=== PATIENT | male | born 2000 | race Two or more races ===

== ENCOUNTER 2024-04-17 20:38 | Inpatient (IN) | payer MEDICAID, SELFPAY ==
[2024-04-17] VITALS (19 sets, daily range): BP systolic 123–146; BP diastolic 57–102; PULSE 68–241; RESP 15–33; TEMP 37.1–37.2; O2SAT 94–98; BMI 20.9
--- NOTE | 2024-04-17 20:40 | EKG_ITS ---
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
[2024-04-17] MEDS: ADENOSINE INJ 3 MG/ML VIAL 6 MG IVP (20:50)
[2024-04-17] MEDS: ADENOSINE INJ 3 MG/ML VIAL 12 MG IVP (20:52)
--- NOTE | 2024-04-17 20:54 | XR_ITS ---
Examination: AP chest single view Technique one AP portable upright chest single view Exam date and time: April 27, 2024 2101 hrs. Indications: Chest pain today. Findings: Normal heart size Accentuation bronchovascular markings. No lobar pneumonia. No geovanny pulmonary edema Impression: Bronchitis pattern
--- NOTE | 2024-04-17 21:02 | EDNOTE_ITS ---
ED General RME/HPI General Chief complaint: Arrhythmia/Palpitations Stated complaint: FAST HEART RATE Time Seen by Provider: 04/17/24 20:58 Arrival date/time: 04/17/24 20:38 RME / HPI RME / HPI narrative: Patient is 23 years old male with no significant past medical history presented to the ED complaining of chest pain and palpitations. Symptoms started suddenly few hours ago and he decided to come to the ED. He reports he had similar symptoms before and had to be treated in the ED. No records are available at [facility]. He reports no drug use, no alcohol or tobacco use. He denies any past medical history. 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 He denies shortness of breath, abdominal pain, fever, chills. Related Data Allergies Allergy/AdvReac Type Severity Reaction Status Date / Time No Known Allergies Allergy Verified 04/17/24 23:07 Review of Systems Review of Systems Systems Reviewed: All systems reviewed, normal except as documented ED Exam Narrative Physical exam: Gen: Well-developed and well-nourished. HEENT: NCAT, PERRLA, EOMI, MMM, anicteric conjunctivae. CVS: normal S1 and S2. RRR. No M/R/G. Resp: CTA B/L. No rhonchi, rales, crackles or wheezing. Abd: soft, non-tender, non-distended. BS+ in all 4 quadrants. MSK: Good ROM in BUE & BLE. No edema or rash. Neuro: CN II-XII grossly intact. Strength 5/5 in BUE & BLE. Alert and oriented x3. Psych: appropriate mood and affect. Course Course Course Narrative: 2040 EKG showed SVT with 223 BPM. 2049 Adenosine 6 mg, no response. 2051 Adenosine 12 mg converted to sinus tachycardia on tele monitor. 2055 EKG showed sinus rhythm at 99 BPM. 2100 Troponin I 0.328. 2300 Troponin I 2.567. Cardiology consulted 0000 Decision to admit. Quality Measures none Orders Category Date Time Status Bedside COVID-19 Antigen Test NOW Care 04/17/24 21:00 Active Bedside Influenza A&B Antigen Test NOW Care 04/17/24 21:00 Completed COVID-19 Screening Questionnaire NOW Care 04/18/24 00:18 Active Decision to Admit X1 Care 04/18/24 00:18 Active EKG (ED ONLY) *Do not use* NOW Care 04/17/24 20:40 Completed Saline [Insert IV] NOW Care 04/17/24 21:00 Active Straight [In and Out Catheter] X1 Care 04/17/24 21:00 Active Consult to Cardiology Stat Cons 04/18/24 00:14 Ordered CXRP [XR chest 1V portable] Stat Exams 04/17/24 20:54 Completed EKG (ED Only) Stat Exams 04/17/24 20:40 Draft Alcohol, Blood Medical Stat Lab 04/17/24 21:00 Completed BNP [B-Type Natriuretic Peptide] Stat Lab 04/17/24 21:00 Completed CBC Stat Lab 04/17/24 21:00 Completed CMP [Comprehensive Metabolic Panel] Stat Lab 04/17/24 21:00 Completed D-Dimer Stat Lab 04/17/24 21:00 Completed Drug Screen,Urine Stat Lab 04/17/24 22:19 Completed Free T4 (Free Thyroxine) Stat Lab 04/17/24 21:00 Completed Magnesium Stat Lab 04/17/24 21:00 Completed TSH [Thyroid Stimulating Hormone] Stat Lab 04/17/24 21:00 Completed Troponin I Stat Lab 04/17/24 21:00 Completed Troponin I Stat Lab 04/17/24 23:23 Completed Urinalysis Stat Lab 04/17/24 22:19 Completed Adenosine 6mg Inj [Adenocard Inj] Med 04/17/24 20:48 Discontinued 12 mg IVP X1 ONE Adenosine 6mg Inj [Adenocard Inj] Med 04/17/24 20:43 Discontinued 18 mg .ROUTE .STK-MED ONE Adenosine 6mg Inj [Adenocard Inj] Med 04/17/24 20:48 Discontinued 6 mg IVP X1 ONE Adenosine 6mg Inj [Adenocard Inj] Med 04/17/24 20:56 Discontinued 6 mg IVP X1 ONE Magnesium Sulfate 2 GM Ivpb [Magnesium Sulfate Ivpb] Med 04/17/24 20:55 Discontinued 2 gm in 50 ml IV X1 Metoprolol Tartrate [Lopressor] Med 04/17/24 20:54 Discontinued 50 mg PO X1 ONE Sodium Chloride 0.9% 500 ml [Ns] 500 ml Med 04/17/24 21:56 Discontinued IV 999 mls/hr Vital Signs Vital signs: Vital Signs Temperature 98.9 F 04/17/24 20:43 Pulse Rate 221 H 04/17/24 20:43 Respiratory Rate 18 04/17/24 20:43 Blood Pressure 129/79 04/17/24 20:43 Pulse Oximetry (%) 96 04/17/24 20:43 Oxygen Delivery Method Room Air 04/17/24 20:43 Procedures -ED EKG Interpretation #1: Date of EK04/17/24 Time of EK:41 Rate: 223 Interpretation: Reviewed by me EKG Impression: SVT #2: Date of EK04/17/24 Time of EK:56 Rate: 99 Interpretation: Reviewed by me EKG Impression: Normal sinus rhythm MDM Patient data External records reviewed:: [facility] previous records Clinical information provided by:: patient Social determinants that could affect healthcare access:: none Patient has the following chronic illnesses:: none How is presenting disease/condition affected by chronic disease/condition?: no chronic disease Evaluation data The following diagnostics were reviewed and interpreted by me:: lab results, radiology exam(s) and EKG tracing(s) Lab and/or radiology exams considered but not ordered:: CTA Interpretation Summary: SVT, NSTEMI type I vs II, mild dehydration Medications Medications considered but not ordered:: heparin Medication administrations:: Medication Administration History Discontinued Medications Adenosine (Adenosine Inj 3 Mg/Ml Vial) 6 mg IVP X1 ONE Stop: 04/17/24 20:49 Adenosine (Adenosine Inj 3 Mg/Ml Vial) 12 mg IVP X1 ONE Stop: 04/17/24 20:49 Last Admin: 04/17/24 20:52 Dose: 12 mg Documented By: DELICIA Adenosine (Adenosine Inj 3 Mg/Ml Vial) Confirm Administered Dose 18 mg .ROUTE .STK-MED ONE Stop: 04/17/24 20:44 Last Admin: 04/17/24 21:01 Dose: Not Given Documented By: SE Non-Admin Reason: Duplicate Medication on eMAR Adenosine (Adenosine Inj 3 Mg/Ml Vial) 6 mg IVP X1 ONE Stop: 04/17/24 20:57 Last Admin: 04/17/24 20:50 Dose: 6 mg Documented By: DELICIA Magnesium Sulfate (Magnesium Sulfate Ivpb) 2 gm in 50 mls @ 25 mls/hr IV X1 ONE Stop: 04/17/24 22:54 Last Infusion: 04/17/24 23:03 Dose: Infused Documented By: Admin: 04/17/24 21:11 Dose: 25 mls/hr Documented By: RADHA Sodium Chloride (Ns) 500 mls @ 999 mls/hr IV .Q31M ONE Stop: 04/17/24 22:26 Last Infusion: 04/17/24 23:06 Dose: Infused Documented By: Admin: 04/17/24 22:05 Dose: 999 mls/hr Documented By: RADHA Metoprolol Tartrate (Metoprolol Tartrate 25 Mg Tablet) 50 mg PO X1 ONE Stop: 04/17/24 20:55 Last Admin: 04/17/24 21:12 Dose: 50 mg Documented By: RADHA Adenosine 6 and 12 mg, metoprolol tartrate 50 mg. NS 500cc, magnesium 2 g, aspirin 325 mg, atorvastatin 40 mg. Consultations Consultation(s) initiated? (list below): Yes Consultation #1 (Physician, Specialty, Details): Dr. Vázquez, cardiology, NSTEMI, SVT. Diagnosis Differential Diagnosis ED Complaint MDM: ACS, SVT, CAP, pericarditis Most likely diagnosis given after review of the tests above:: SVT Admission Indicated Admission indicated?: indicated Explain why admission is indicated or not indicated:: Patient presented with reportedly recurrence of SVT. He was converted to sinus rhythm with adenosine. His troponin I was elevated right after SVT, however repeat troponin I in 2 hours was significantly higher. He will need to be admitted for further cardiac work up. Admission Request Was there a request for admission?: Yes Admission Attestation Admission request attestation: Discussed case with Dr. Hutchison from Hospitalist service regarding admission. Discussed patients ED course, exam findings, labs, and radiology results. The Hospitalist agrees to accept the patient for admission. Disposition Plan Disposition Plan: Admit Medical Decision Making MDM Narrative MDM Narrative: Patient presented with SVT and was converted to sinus rhythm with adenosine. He reports he had similar episode before and was treated in emergency room. He does not report any cardiac history. His troponin was elevated right after SVT and his second troponin 2 hours later was 2.567. Patient will need to be admitted for further workup, cardiology was consulted. Differential Diagnosis Differential Diagnosis: ACS, SVT, CAP, pericarditis Lab Data 04/17/24 21:00 04/17/24 21:00 Labs: Lab Results 04/17/24 04/17/24 04/17/24 Range/Units 21:00 22:19 23:23 WBC 14.6 H (3.8-10.6) Thou/mm3 RBC 5.53 (4.50-5.90) Miln/mm3 Hgb 17.1 H (13.5-16.0) g/dL Hct 48.2 (41.0-53.0) % MCV 87 (80-100) fL MCH 30.9 (25.0-35.0) pg MCHC 35.5 (31.0-37.0) g/dl RDW Std Deviation 40.0 (35.1-43.9) fL Plt Count 294 (140-440) Thou/mm3 Neut % (Auto) 81 H (37-80) % Lymph % (Auto) 12 (10-50) % [place] % (Auto) 6 (0-12) % Eos % (Auto) 0 (0-10) % Baso % (Auto) 1 (0-2.5) % Neut # (Auto) 11.9 H (1.8-7.7) Thou/mm3 Lymph # (Auto) 1.7 (1.0-4.8) Thou/mm3 [place] # (Auto) 0.8 (0.0-0.8) Thou/mm3 Eos # (Auto) 0.0 (0.0-0.5) Thou/mm3 Baso # (Auto) 0.1 (0.0-0.2) Thou/mm3 Immature Gran # (Auto) 0.10 H (0.00-0.00) Thou/mm3 Absolute Nucleated RBC 0.00 (0.00-0.00) Thou/mm3 Immature Gran % 1 H (0-0) % Nucleated RBC % 0 (0) /100 WBC D-Dimer < 250 (<600) ng/mL Sodium 141 (136-145) mMol/L Potassium 4.0 (3.4-5.1) mMol/L Chloride 102 (98-107) mMol/L Carbon Dioxide 25.6 (20.0-31.0) mMol/L Anion Gap 13 (7-16) BUN 25 H (9-23) mg/dL Creatinine 1.0 (0.6-1.3) mg/dL Estim Creat Clear Calc 101.4 (>60) mL/min eGFR > 60 (60 - ) See Note BUN/Creatinine Ratio 25 H (12-20) Ratio Glucose 111 H (74-106) mg/dL Calculated Osmolality 286 (275-295) Calcium 10.2 (8.3-10.6) mg/dL Corrected Calcium 10.2 H (8.5-10.1) mg/dL Magnesium 2.2 (1.6-2.6) mg/dL Total Bilirubin 0.6 (0.3-1.2) mg/dL AST 90 H (0-34) U/L ALT 107 H (10-49) U/L Alkaline Phosphatase 102 (46-116) U/L Troponin I 0.328 H* 2.567 H* D (0.0-0.045) ng/mL B-Natriuretic Peptide 28 (0-100) pg/mL Total Protein 8.7 H (5.7-8.2) gm/dL Albumin 5.6 H (3.5-5.0) gm/dL Globulin 3.1 (2.3-3.5) gm/dL Albumin/Globulin Ratio 1.8 (1.2-2.2) TSH 5.43 H (0.55-4.78) uIU/mL Free T4 1.49 (0.89-1.76) ng/dL Ur Collection Type Clean Catch Urine Color Lt-Yellow (Lt Yel-Yel) Urine Clarity Clear (Clear/Hazy) Urine pH 6.0 (5.0-7.0) Ur Specific [place] 1.022 (1.001-1.035) Urine Protein Negative (Neg - Trace) Urine Glucose (UA) Negative (Negative) Urine Ketones 1+ A (Negative) Urine Blood Negative (Negative) Urine Nitrite Negative (Negative) Urine Bilirubin Negative (Negative) Urine Urobilinogen (Auto) Negative (0.0-1.0) mg/dL Ur Leukocyte Esterase Negative (Negative) Urine RBC 1 (0-3) /hpf Urine WBC 0 (0-5) /hpf Ur Squamous Epith Cells < 1 (0-5) /hpf Urine Bacteria None (None) Hyaline Casts < 1 (0-1) /hpf Urine Opiates Screen Negative (Negative) Urine Fentanyl Screen Negative (Negative) Ur Barbiturates Screen Negative (Negative) U Amphetamin/Meth Scrn Negative (Negative) U Benzodiazepines Scrn Negative (Negative) U Cocaine Metab Screen Negative (Negative) U Marijuana (THC) Screen Negative (Negative) Ethyl Alcohol < 3.0 (0-10.0) mg/dL Discharge Plan Plan Patient Disposition: Admit Acute Care w/in Hospital Problem List Clinical Impression: Supraventricular tachycardia, Elevated troponin Patient/Caregiver Discharge Instructions Print Language: Persian Stand Alone Forms: [employer] Award Info., Patient Portal Info Letter
[2024-04-17] MEDS: Magnesium Sulfate 2 GM Ivpb 2 GM/50 ML BAG IV (21:11)
[2024-04-17] MEDS: METOPROLOL TARTRATE 25 MG TABLET 50 MG PO (21:12)
[2024-04-17 21:34] LABS: Basophils # (Auto) 0.1 Thou/mm3 (0.0-0.2); Basophils % (Auto) 1 % (0-2.5); Eosinophils % (Auto) 0 % (0-10); Hematocrit 48.2 % (41.0-53.0); Hemoglobin 17.1 g/dL (13.5-16.0); Immature Granulocytes % (Auto) 1 % (0-0); Lymphocytes # (Auto) 1.7 Thou/mm3 (1.0-4.8); Lymphocytes % (Auto) 12 % (10-50); Mean Corpuscular HGB Conc 35.5 g/dl (31.0-37.0); Mean Corpuscular Hemoglobin 30.9 pg (25.0-35.0); Mean Corpuscular Volume 87 fL (80-100); Monocytes # (Auto) 0.8 Thou/mm3 (0.0-0.8); Monocytes % (Auto) 6 % (0-12); Neutrophils # (Auto) 11.9 Thou/mm3 (1.8-7.7); Neutrophils % (Auto) 81 % (37-80); Nucleated Red Blood Cell % 0 /100 WBC (0); Platelet Count 294 Thou/mm3 (140-440); Red Blood Count 5.53 Miln/mm3 (4.50-5.90); White Blood Count 14.6 Thou/mm3 (3.8-10.6)
[2024-04-17 21:51] LABS: Alanine Aminotransferase 107 U/L (10-49); Albumin, Serum 5.6 gm/dL (3.5-5.0); Albumin/Globulin Ratio 1.8 (1.2-2.2); Alcohol, Blood Medical < 3.0 mg/dL (0-10.0); Alkaline Phosphatase 102 U/L (46-116); Anion Gap 13 (7-16); Aspartate Amino Transferase 90 U/L (0-34); BUN/Creatinine Ratio 25 Ratio (12-20); Bilirubin,Total 0.6 mg/dL (0.3-1.2); Blood Urea Nitrogen 25 mg/dL (9-23); Calcium 10.2 mg/dL (8.3-10.6); Calcium (Corrected) 10.2 mg/dL (8.5-10.1); Carbon Dioxide 25.6 mMol/L (20.0-31.0); Chloride 102 mMol/L (98-107); Estimated Creatinine Clearance 101.4 mL/min (>60); Globulin 3.1 gm/dL (2.3-3.5); Glucose 111 mg/dL (74-106); Magnesium 2.2 mg/dL (1.6-2.6); Osmolality,Calculated 286 (275-295); Sodium 141 mMol/L (136-145); Thyroid Stimulating Hormone 5.43 uIU/mL (0.55-4.78); Total Protein 8.7 gm/dL (5.7-8.2); eGFR > 60 See Note
[2024-04-17 21:53] LABS: Troponin I 0.328 ng/mL (0.0-0.045)
[2024-04-17 21:54] LABS: D-Dimer < 250 ng/mL (<600)
[2024-04-17 21:58] LABS: B-Type Natriuretic Peptide 28 pg/mL (0-100)
[2024-04-17] MEDS: SODIUM CHLORIDE 0.9% 500 ML 500 ML 999 ML IV (22:05)
[2024-04-17 22:23] LABS: Collection Type, Urine Clean Catch; WBC,Urine 0 /hpf (0-5)
[2024-04-17 22:26] LABS: Free T4 (Free Thyroxine) 1.49 ng/dL (0.89-1.76)
[2024-04-17 22:49] LABS: Bilirubin,Urine Negative (Negative); Blood,Urine Negative (Negative); Clarity,Urine Clear (Clear/Hazy); Color,Urine Lt-Yellow (Lt Yel-Yel); Glucose, Urine Negative (Negative); Hyaline Casts,Urine < 1 /hpf (0-1); Ketones,Urine 1+ (Negative); Leukocyte Esterase,Urine Negative (Negative); Nitrite,Urine Negative (Negative); Protein,Urine Negative (Neg - Trace); RBC,Urine 1 /hpf (0-3); Specific Gravity,Urine 1.022 (1.001-1.035); Squamous Epithelial Cell,Urine < 1 /hpf (0-5); Urobilinogen,Urine Negative mg/dL (0.0-1.0)
[2024-04-17 22:52] LABS: Amphetamine/Methamp Scrn,U Negative (Negative); Barbiturate Screen,Urine Negative (Negative); Benzodiazepines Screen,Urine Negative (Negative); Benzoylecgonine Screen, Ur Negative (Negative); Fentanyl Screen,Urine Negative (Negative); Opiate Screen,Urine Negative (Negative); THC Screen,Urine Negative (Negative)
[2024-04-18] VITALS (25 sets, daily range): BP systolic 116–138; BP diastolic 69–90; PULSE 59–85; RESP 13–98; TEMP 36.3–36.8; O2SAT 97–100
[2024-04-18 00:02] LABS: Troponin I 2.567 ng/mL (0.0-0.045)
--- NOTE | 2024-04-18 02:18 | XR_ITS ---
Examination: Abdomen sonogram, complete Date and time of exam: April 18, 2024 0810 hrs. Indications: Elevated liver function tests on laboratory examination today. Technique: Multiple real-time grayscale transabdominal sonographic images of the abdomen have been obtained. Findings: Normal gallbladder Normal common bile duct 0.3 cm Pancreatic head 2.1 cm Aorta not enlarged Liver 17.2 cm fatty infiltration Normal hepatopedal portal venous flow Patent IVC Right kidney 12.5 cm cortex 1.7 cm Left kidney 10.5 cm cortex 1.9 cm Spleen 10.5 cm Impression: Normal gallbladder Mild hepatomegaly fatty liver
--- NOTE | 2024-04-18 02:19 | ESHP_ITS ---
<Statement entered by Ghazala Weeks MD - 04/18/24 05:56> 23-year-old with a remote history of arrhythmia however patient unable to give any details who presented to the ER with palpitation and dizziness. Patient states it started about 2-3 hours prior to presenting to the ER and patient was noted to be in SVT and thus received 2 doses of adenosine 6 and 12 mg respectively. His SVT converted to sinus rhythm after second dose of adenosine and subsequently patient started on metoprolol titrate 50 mg daily. Furthermore, patient also noted to have an elevation in troponin with initial troponin 0.328 then up trended to 2.5 however EKG with no ST or T wave changes. As a result, plan to admit the patient monitor closely. As for elevated troponins will continue to trend and likely related to the SVT however she continues to go up at that point we will call cardiology immediately.I reviewed above note and agree with findings and plans. I have also personally examined the patient with medicine team and went over assessment and plan with medical team including internal affairs commander and resident physician. Documentation for date of: 04/18/24 HPI History of Present Illness Chief complaint: Palpitation and dizziness for few hours before admission History of present illness: HPI: A 23-year-old male patient with past medical history of nonspecified arrhythmia presented to the ED due to palpitation and dizziness that started at 5 PM on 17 April 2024. 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 At that time patient felt a little bit dizzy and mild sweaty however he denied any chest pain. He reported that he had an episode similar to this 1 when he was in [place] and was admitted to a hospital over there. Patient denied having any acute illness at that time denied using any stimulants such as coffee, meth, or any other drugs. He denied drinking alcohol and denied any use for any medications. After he had the first episode in [place] he has not followed up with any ui architect at that time and he was only prescribed a medication for 1 month in which she did not refill. On further questioning patient denied any chest pain, lower extremity swelling, orthopnea, paroxysmal nocturnal dyspnea. Patient denied any flulike symptoms or runny nose. Home medications: None ED course: On presentation patient's heart rate was 221, blood pressure was 129/79, other vitals within normal limits saturating well on room air. Patient was given 2 doses of adenosine 6 and 12 mg respectively. His SVT converted to sinus rhythm after the second dose of adenosine. He was started on metoprolol tartrate 50 mg p.o. by the ED team. His labs was only significant for WBC level of 14.6, hemoglobin 17.1, and his platelets 294, his BMP showed potassium of 4.0, magnesium 2.2, his BUN was 25 and his serum creatinine is 1.0, he was noticed to have elevated AST and ALT 90 and 107 respectively with normal total bilirubin and alk phos. Initially his troponin was 0.328 and repeat of troponin was 2.567. Repeat EKG showed high voltage QRS complex however there was no signs of ischemic changes. PMH: As above PSX: Denied PFX: Cousin with cardiac problems nonspecified Social hx: Alcohol: Denied Tobacco: Denied Illicit drugs: Denied Allergies: No known allergies Review of Systems Review of Systems Systems Reviewed: All systems reviewed, normal except as documented Exam Vital Signs Temp Pulse Resp BP Pulse Ox O2 Del Method 98.8 F 68 18 124/83 97 Room Air 04/17/24 22:24 04/18/24 00:00 04/18/24 00:00 04/18/24 00:00 04/18/24 00:00 04/17/24 22:24 Narrative Exam GEN: AOx3, able to speak full sentences HEENT: NC/AC, oral mucosa moist, neck supple CVS: RRR, S1-S2 present, no murmurs appreciated RESP: CTAB GI: soft,non distended, non tender, NBS MSK: able to move all 4 limbs, no lower extremity edema SKIN: warm 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 Results: Labs 04/18/24 04:50 04/17/24 21:00 Labs: Short CBC 04/17/24 Range/Units 21:00 WBC 14.6 H (3.8-10.6) Thou/mm3 Hgb 17.1 H (13.5-16.0) g/dL Hct 48.2 (41.0-53.0) % Plt Count 294 (140-440) Thou/mm3 BMP 04/17/24 21:00 Sodium 141 Potassium 4.0 Chloride 102 Carbon Dioxide 25.6 BUN 25 H Creatinine 1.0 Glucose 111 H Calcium 10.2 Cardiac Enzymes 04/17/24 04/17/24 Range/Units 21:00 23:23 Troponin I 0.328 H* 2.567 H* D (0.0-0.045) ng/mL Liver Function 04/17/24 Range/Units 21:00 Total Bilirubin 0.6 (0.3-1.2) mg/dL AST 90 H (0-34) U/L ALT 107 H (10-49) U/L Alkaline Phosphatase 102 (46-116) U/L Albumin 5.6 H (3.5-5.0) gm/dL Urine 04/17/24 Range/Units 22:19 Urine Color Lt-Yellow (Lt Yel-Yel) Urine Clarity Clear (Clear/Hazy) Urine pH 6.0 (5.0-7.0) Ur Specific [place] 1.022 (1.001-1.035) Urine Protein Negative (Neg - Trace) Urine Glucose (UA) Negative (Negative) Quality Measures Quality Measures none Medications Home Medications and Allergies Allergies Allergy/AdvReac Type Severity Reaction Status Date / Time No Known Allergies Allergy Verified 04/17/24 23:07 Visit Medications Acetaminophen (Acetaminophen 325 Mg Tablet) 650 mg PO Q6H PRN PRN Reason: Fever >101.5 Stop: 05/18/24 02:07 Aspirin (Aspirin Ec 81 Mg Tabec) 81 mg PO QDAY [facility] Stop: 05/18/24 08:59 Heparin Sodium (Porcine) (Heparin Sod Inj 5000 Unit/Ml Vial) 5,000 unit SC Q8HR [facility] Stop: 05/02/24 05:59 Metoprolol Tartrate (Metoprolol Tartrate 25 Mg Tablet) 50 mg PO BID [facility] Stop: 05/18/24 08:59 Ondansetron HCl (Ondansetron Inj 2 Mg/Ml Inj 2 Ml) 4 mg IV Q6H PRN; Protocol PRN Reason: NAUSEA OR VOMITING Stop: 05/18/24 02:07 Discontinued Medications Adenosine (Adenosine Inj 3 Mg/Ml Vial) 6 mg IVP X1 ONE Stop: 04/17/24 20:49 Adenosine (Adenosine Inj 3 Mg/Ml Vial) 12 mg IVP X1 ONE Stop: 04/17/24 20:49 Last Admin: 04/17/24 20:52 Dose: 12 mg Adenosine (Adenosine Inj 3 Mg/Ml Vial) 6 mg IVP X1 ONE Stop: 04/17/24 20:57 Last Admin: 04/17/24 20:50 Dose: 6 mg Aspirin (Aspirin 325 Mg Tablet) 325 mg PO X1 ONE Stop: 04/18/24 00:24 Atorvastatin Calcium (Atorvastatin Calcium 10 Mg Tablet) 40 mg PO X1 ONE Stop: 04/18/24 00:24 Magnesium Sulfate (Magnesium Sulfate Ivpb) 2 gm in 50 mls @ 25 mls/hr IV X1 ONE Stop: 04/17/24 22:54 Last Infusion: 04/17/24 23:03 Dose: Infused Sodium Chloride (Ns) 500 mls @ 999 mls/hr IV .Q31M ONE Stop: 04/17/24 22:26 Last Infusion: 04/17/24 23:06 Dose: Infused Metoprolol Tartrate (Metoprolol Tartrate 25 Mg Tablet) 50 mg PO X1 ONE Stop: 04/17/24 20:55 Last Admin: 04/17/24 21:12 Dose: 50 mg Assessment & Plan Plan Summary: A 23-year-old male patient with past medical history of nonspecified arrhythmia presented to the ED due to palpitation and dizziness that started at 5 PM on 17 April 2024. 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 Patient was admitted due to elevated troponins Assessment and plan #SVT status post conversion #Elevated troponins On presentation patient's heart rate was 221, blood pressure was 129/79, other vitals within normal limits saturating well on room air. Patient was given 2 doses of adenosine 6 and 12 mg respectively. His SVT converted to sinus rhythm after the second dose of adenosine. He was started on metoprolol tartrate 50 mg p.o. by the ED team. Initially his troponin was 0.328 and repeat of troponin was 2.567. Repeat EKG showed high voltage QRS complex however there was no signs of ischemic changes. Patient was started on aspirin 325 mg p.o. and statins by the ED team Plan ? Admit patient to telemetry observation ? Start the patient on metoprolol tartrate 50 mg p.o. twice daily ? Replete electrolytes as needed ? Avoid stimulants including coffee ? Continue to trend troponins ? Cardiology consultation to Dr. Vázquez was ordered, follow-up with his recommendations ? Start the patient on aspirin 81 mg p.o. daily #Elevated liver enzymes PAtient came with elevated liver enzymes, denied any hx of liver disease, denied alcohol abuse, U tox was negative on abdominal CT scan liver was normal plan: - Acute hep panel was ordered Hospital Maintenance: FEN: Cardiac diet DVT ppx: Heparin subcu GI ppx: Protonix IV lines: PIV Irene: None Code status: Full code Dispo: Telemetry - Patient's plan and care discussed with my attending, Dr. Micky Peck MD Internal Medicine PGY-2
[2024-04-18] MEDS: Aspirin 325 MG TABLET PO (02:21)
[2024-04-18] MEDS: ATORVASTATIN CALCIUM 10 MG TABLET 40 MG PO (02:21)
[2024-04-18 03:04] LABS: Troponin I 4.473 ng/mL (0.0-0.045)
--- NOTE | 2024-04-18 03:18 | EKG_ITS ---
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
[2024-04-18 04:58] LABS: Basophils % (Auto) 1 % (0-2.5); Eosinophils # (Auto) 0.1 Thou/mm3 (0.0-0.5); Eosinophils % (Auto) 1 % (0-10); Hematocrit 41.9 % (41.0-53.0); Hemoglobin 14.7 g/dL (13.5-16.0); Immature Granulocytes % (Auto) 0 % (0-0); Immature Granulocytes Auto 0.02 Thou/mm3 (0.00-0.00); Lymphocytes # (Auto) 1.9 Thou/mm3 (1.0-4.8); Lymphocytes % (Auto) 25 % (10-50); Mean Corpuscular HGB Conc 35.1 g/dl (31.0-37.0); Mean Corpuscular Hemoglobin 30.8 pg (25.0-35.0); Mean Corpuscular Volume 88 fL (80-100); Monocytes # (Auto) 0.6 Thou/mm3 (0.0-0.8); Monocytes % (Auto) 8 % (0-12); Neutrophils # (Auto) 4.9 Thou/mm3 (1.8-7.7); Neutrophils % (Auto) 66 % (37-80); Nucleated Red Blood Cell % 0 /100 WBC (0); Platelet Count 216 Thou/mm3 (140-440); RDW Standard Deviation 41.9 fL (35.1-43.9); Red Blood Count 4.78 Miln/mm3 (4.50-5.90); White Blood Count 7.4 Thou/mm3 (3.8-10.6)
[2024-04-18 05:28] LABS: Alanine Aminotransferase 79 U/L (10-49); Albumin, Serum 4.5 gm/dL (3.5-5.0); Albumin/Globulin Ratio 1.7 (1.2-2.2); Alkaline Phosphatase 78 U/L (46-116); Anion Gap 6 (7-16); Aspartate Amino Transferase 57 U/L (0-34); BUN/Creatinine Ratio 26 Ratio (12-20); Bilirubin,Total 0.9 mg/dL (0.3-1.2); Blood Urea Nitrogen 18 mg/dL (9-23); Carbon Dioxide 25.9 mMol/L (20.0-31.0); Chloride 107 mMol/L (98-107); Creatinine (Component) 0.7 mg/dL (0.6-1.3); Estimated Creatinine Clearance 144.9 mL/min (>60); Globulin 2.6 gm/dL (2.3-3.5); Glucose 94 mg/dL (74-106); Magnesium 2.5 mg/dL (1.6-2.6); Osmolality,Calculated 279 (275-295); Potassium 4.3 mMol/L (3.4-5.1); Sodium 139 mMol/L (136-145); Total Protein 7.1 gm/dL (5.7-8.2); eGFR > 60 See Note
[2024-04-18] MEDS: HEPARIN SOD INJ 5000 UNIT/ML VIAL SC (05:31)
[2024-04-18 05:55] LABS: Iron 84 mcg/dL (65-175); Percent Iron Saturation 21 % (20-55); Total Iron Binding Capacity 383 mcg/dL (250-425); Unsaturated Iron Binding 299 (225-295)
[2024-04-18 08:55] LABS: Troponin I 3.433 ng/mL (0.0-0.045)
--- NOTE | 2024-04-18 09:02 | PC.NURSE ---
ATTEMPTED TO CALL REPORT, NURSE WILL CALL BACK.
[2024-04-18] MEDS: ASPIRIN EC 81 MG TABEC PO (09:15)
[2024-04-18] MEDS: METOPROLOL TARTRATE 25 MG TABLET 50 MG PO ×2 (09:15→21:02)
[2024-04-18] MEDS: ENOXAPARIN SOD INJ 100 MG/ML SYRINGE 64 MG SC (10:39)
--- NOTE | 2024-04-18 11:49 | ESCONSULT_ITS ---
HPI Data of Consult Requesting Physician: Ghazala Weeks MD Primary Care Provider: Physician No Primary/Family Consult Narrative History of present illness: This is a 23-year-old male patient with past medical history of arrhythmia pt seen in the ER with dizziness and palpitations In the ER EKG showed SVT with HR 224/min SVT and was treated with adenosin pt had similar episodes before troponin elevated - cc:: cc: Ghazala Weeks MD Meds Home Medications and Allergies Home Medications ?Medication ?Instructions ?Recorded ?Confirmed ?Type Unobtainable 04/18/24 04/18/24 History Allergies Allergy/AdvReac Type Severity Reaction Status Date / Time No Known Allergies Allergy Verified 04/17/24 23:07 Exam Vital Signs Temp Pulse Resp BP Pulse Ox O2 Del Method 98.2 F 62 20 127/75 99 Room Air 04/18/24 10:05 04/18/24 10:05 04/18/24 10:05 04/18/24 10:05 04/18/24 10:05 04/18/24 07:38 Routine HEENT Exam Head: Present normocephalic and atraumatic Eye: Present EOMI and PERRL ENT: Present mucous membranes moist Routine Neck Exam Neck: Present supple and trachea midline Routine Respiratory Exam Respiratory: Present chest non-tender, lungs clear, normal breath sounds and no resp distress Routine Cardiovascular Exam Cardiovascular: Present RRR Routine Abdominal Exam Abdominal: Present soft and normoactive bowel sounds Routine Extremities Exam Extremities: Present full ROM Routine Skin Exam Skin: Present intact, dry and warm Routine Neurological Exam Neurological: Present alert, oriented X3 and CN II-XII intact Routine Psychiatric Exam Psychiatric: Present normal affect and normal thought process Results Labs 04/18/24 04:50 04/18/24 04:50 Labs: Short CBC 04/17/24 04/18/24 Range/Units 21:00 04:50 WBC 14.6 H 7.4 D (3.8-10.6) Thou/mm3 Hgb 17.1 H 14.7 D (13.5-16.0) g/dL Hct 48.2 41.9 (41.0-53.0) % Plt Count 294 216 D (140-440) Thou/mm3 BMP 04/17/24 04/18/24 21:00 04:50 Sodium 141 139 Potassium 4.0 4.3 Chloride 102 107 Carbon Dioxide 25.6 25.9 BUN 25 H 18 Creatinine 1.0 0.7 Glucose 111 H 94 Calcium 10.2 9.0 Cardiac Enzymes 04/17/24 04/17/24 04/18/24 Range/Units 21:00 23:23 02:26 Troponin I 0.328 H* 2.567 H* D 4.473 H* D (0.0-0.045) ng/mL 04/18/24 Range/Units 08:23 Troponin I 3.433 H* D (0.0-0.045) ng/mL Liver Function 04/17/24 04/18/24 Range/Units 21:00 04:50 Total Bilirubin 0.6 0.9 (0.3-1.2) mg/dL AST 90 H 57 H (0-34) U/L ALT 107 H 79 H (10-49) U/L Alkaline Phosphatase 102 78 D (46-116) U/L Albumin 5.6 H 4.5 D (3.5-5.0) gm/dL Urine 04/17/24 Range/Units 22:19 Urine Color Lt-Yellow (Lt Yel-Yel) Urine Clarity Clear (Clear/Hazy) Urine pH 6.0 (5.0-7.0) Ur Specific [place] 1.022 (1.001-1.035) Urine Protein Negative (Neg - Trace) Urine Glucose (UA) Negative (Negative) Assessment and Plan Assessment and plan (1) Supraventricular tachycardia: Status: Acute (2) Elevated troponin: Status: Acute Additional Assessment & Plan Additional Plan: pts symptoms are related to SVT which responded to adenosine this suggests AVNRT type SVT elevated troponin is due to demand ischemia doubt ACS recommend echo continue betablocker
--- NOTE | 2024-04-18 12:58 | PD.RESPRO ---
Documentation for date of: 04/18/24 Subjective Subjective Interval history: No overnight events. Patient seen and examined at bedside, resting comfortably. At this time patient denies chest pain, shortness of breath, nausea, vomiting, weakness, fatigue, lightheadedness. Echo pending. Patient remains in sinus rhythm. Cardiology following. Exam Vital Signs Temp Pulse Resp BP Pulse Ox O2 Del Method 98.2 F 64 20 130/82 99 Room Air 04/18/24 12:31 04/18/24 12:31 04/18/24 12:04/18/24 12:31 04/18/24 12:04/18/24 12:31 Narrative Exam PE: Gen: Well-developed and well-nourished. HEENT: NCAT, PERRLA, EOMI, MMM, anicteric conjunctivae. CVS: normal S1 and S2. RRR. No M/R/G. Resp: CTA B/L. No rhonchi, rales, crackles or wheezing. Abd: soft, non-tender, non-distended. BS+ in all 4 quadrants. MSK: Good ROM in BUE & BLE. No edema or rash. Neuro: CN II-XII grossly intact. Strength 5/5 in BUE & BLE. Alert and oriented x3. Psych: appropriate mood and affect. Objective Labs 04/18/24 04:50 04/18/24 04:50 Labs: Laboratory Results - last 24 hr 04/17/24 04/17/24 04/17/24 21:00 22:19 23:23 WBC 14.6 H RBC 5.53 Hgb 17.1 H Hct 48.2 MCV 87 MCH 30.9 MCHC 35.5 RDW Std Deviation 40.0 Plt Count 294 Neut % (Auto) 81 H Lymph % (Auto) 12 [place] % (Auto) 6 Eos % (Auto) 0 Baso % (Auto) 1 Neut # (Auto) 11.9 H Lymph # (Auto) 1.7 [place] # (Auto) 0.8 Eos # (Auto) 0.0 Baso # (Auto) 0.1 Immature Gran # (Auto) 0.10 H Absolute Nucleated RBC 0.00 Immature Gran % 1 H Nucleated RBC % 0 D-Dimer < 250 Sodium 141 Potassium 4.0 Chloride 102 Carbon Dioxide 25.6 Anion Gap 13 BUN 25 H Creatinine 1.0 Estim Creat Clear Calc 101.4 eGFR > 60 BUN/Creatinine Ratio 25 H Glucose 111 H Calculated Osmolality 286 Calcium 10.2 Corrected Calcium 10.2 H Magnesium 2.2 Iron TIBC Iron Saturation Unsat Iron Binding Total Bilirubin 0.6 AST 90 H ALT 107 H Alkaline Phosphatase 102 Troponin I 0.328 H* 2.567 H* D B-Natriuretic Peptide 28 Total Protein 8.7 H Albumin 5.6 H Globulin 3.1 Albumin/Globulin Ratio 1.8 TSH 5.43 H Free T4 1.49 Ur Collection Type Clean Catch Urine Color Lt-Yellow Urine Clarity Clear Urine pH 6.0 Ur Specific [place] 1.022 Urine Protein Negative Urine Glucose (UA) Negative Urine Ketones 1+ A Urine Blood Negative Urine Nitrite Negative Urine Bilirubin Negative Urine Urobilinogen (Auto) Negative Ur Leukocyte Esterase Negative Urine RBC 1 Urine WBC 0 Ur Squamous Epith Cells < 1 Urine Bacteria None Hyaline Casts < 1 Urine Opiates Screen Negative Urine Fentanyl Screen Negative Ur Barbiturates Screen Negative U Amphetamin/Meth Scrn Negative U Benzodiazepines Scrn Negative U Cocaine Metab Screen Negative U Marijuana (THC) Screen Negative Ethyl Alcohol < 3.0 04/18/24 04/18/24 04/18/24 02:26 04:50 08:23 WBC 7.4 D RBC 4.78 Hgb 14.7 D Hct 41.9 MCV 88 MCH 30.8 MCHC 35.1 RDW Std Deviation 41.9 Plt Count 216 D Neut % (Auto) 66 Lymph % (Auto) 25 [place] % (Auto) 8 Eos % (Auto) 1 Baso % (Auto) 1 Neut # (Auto) 4.9 Lymph # (Auto) 1.9 [place] # (Auto) 0.6 Eos # (Auto) 0.1 Baso # (Auto) 0.0 Immature Gran # (Auto) 0.02 H Absolute Nucleated RBC 0.00 Immature Gran % 0 Nucleated RBC % 0 D-Dimer Sodium 139 Potassium 4.3 Chloride 107 Carbon Dioxide 25.9 Anion Gap 6 L BUN 18 Creatinine 0.7 Estim Creat Clear Calc 144.9 eGFR > 60 BUN/Creatinine Ratio 26 H Glucose 94 Calculated Osmolality 279 Calcium 9.0 Corrected Calcium 9.0 Magnesium 2.5 Iron 84 TIBC 383 Iron Saturation 21 Unsat Iron Binding 299 H Total Bilirubin 0.9 AST 57 H ALT 79 H Alkaline Phosphatase 78 D Troponin I 4.473 H* D 3.433 H* D B-Natriuretic Peptide Total Protein 7.1 Albumin 4.5 D Globulin 2.6 Albumin/Globulin Ratio 1.7 TSH Free T4 Ur Collection Type Urine Color Urine Clarity Urine pH Ur Specific [place] Urine Protein Urine Glucose (UA) Urine Ketones Urine Blood Urine Nitrite Urine Bilirubin Urine Urobilinogen (Auto) Ur Leukocyte Esterase Urine RBC Urine WBC Ur Squamous Epith Cells Urine Bacteria Hyaline Casts Urine Opiates Screen Urine Fentanyl Screen Ur Barbiturates Screen U Amphetamin/Meth Scrn U Benzodiazepines Scrn U Cocaine Metab Screen U Marijuana (THC) Screen Ethyl Alcohol Quality Measures Quality Measures none Assessment & Plan Assessment Current Active Medications: Generic Name Dose Route Start Last Admin Trade Name Freq PRN Reason Stop Dose Admin Acetaminophen 650 mg 04/18/24 02:08 Acetaminophen 325 Mg Tablet PO 05/18/24 02:07 Q6H PRN Fever >101.5 Aspirin 81 mg 04/18/24 09:00 04/18/24 09:15 Aspirin Ec 81 Mg Tabec PO 05/18/24 08:59 81 mg QDAY GISELA Administration Enoxaparin Sodium 60 mg 04/18/24 21:00 Enoxaparin Sod Inj 60 Mg/0.6 Ml Syringe 1 mg/kg (64 mg) 05/02/24 10:29 SC BID GISELA Metoprolol Tartrate 50 mg 04/18/24 09:00 04/18/24 09:15 Metoprolol Tartrate 25 Mg Tablet PO 05/18/24 08:59 50 mg BID GISELA Administration Ondansetron HCl 4 mg 04/18/24 02:08 Ondansetron Inj 2 Mg/Ml Inj 2 Ml IV 05/18/24 02:07 Q6H PRN NAUSEA OR VOMITING Protocol Plan 23-year-old male patient with past medical history of nonspecified arrhythmia presented to the ED due to palpitation and dizziness that started at 5 PM on 17 April 2024, admitted for SVT with elevated troponins. #SVT status post conversion #NSTEMI type I versus type II On presentation patient's heart rate was 221, blood pressure was 129/79, other vitals within normal limits saturating well on room air. Patient was given 2 doses of adenosine 6 and 12 mg respectively. His SVT converted to sinus rhythm after the second dose of adenosine. He was started on metoprolol tartrate 50 mg p.o. by the ED team. Initially his troponin was 0.328 and repeat of troponin was 2.567. Repeat EKG showed high voltage QRS complex however there was no signs of ischemic changes. Patient was given aspirin 325 mg p.o. and statins by the ED team. Troponins peaked at 4.47. NSTEMI type II (demand ischemia) suspected, less likely NSTEMI type I. -Telemetry -Start the patient on metoprolol tartrate 50 mg p.o. twice daily -Discharge on metoprolol succinate 50 mg p.o. daily -Replete electrolytes as needed -Avoid stimulants including coffee -Continue to trend troponins -Cardiology consultation to Dr. Vázquez was ordered, recommendations appreciated -Aspirin 81 mg p.o. daily -Echo pending -Lovenox 1 rony/KG twice daily #Transaminitis Patient came with elevated liver enzymes, denied any hx of liver disease, denied alcohol abuse, U tox was negative On abdominal CT scan liver was normal -Acute hep panel pending -Monitor labs DVT prophylaxis: Lovenox GI prophylaxis: Not needed Diet: Regular Lines: Peripheral IV Code status: Full code Plan of care discussed with attending Dr. Ross. Tyler Myers MD PGY?1 Attending Provider Attestation/Addendum Addie Duran, DO, attest that I was physically present for the cerda portions of the service and evaluated the patient with the resident and I reviewed and discussed the case with the resident and agree with the resident's findings and plans of care as documented above Patient seen and evaluated thsi AM. Patient states that he was working yesterday and was trying to lift something when he started to experience palpitation, lightheadedness, dyspnea, diaphoresis and squeezing chest pain. Patient states that he had similar episodes in the past when he was treated for SVT in [place]. Patient had been prescribed metoprolol tartrate 25mg PO BID and subsequently switched to metoprolol succinate 25mg PO daily. Patient had been taking his medications daily and forgot to take it for the past three days prior to this SVT episode. Patient currently states he is feeling well and denies any active chest pain. Elevated troponins concerning for NSTEMI. Will start patient on full dose lovenox and f/u with cardiology recommendations. Patient denies any family history of cardiac diseae. Pending echo
[2024-04-18 14:51] LABS: Troponin I 2.066 ng/mL (0.0-0.045)
[2024-04-19] VITALS (12 sets, daily range): BP systolic 96–129; BP diastolic 67–81; PULSE 49–84; RESP 15–99; TEMP 36.1–36.6; O2SAT 99; BMI 25.3
[2024-04-19 03:38] LABS: Basophils % (Auto) 1 % (0-2.5); Eosinophils # (Auto) 0.2 Thou/mm3 (0.0-0.5); Eosinophils % (Auto) 3 % (0-10); Hematocrit 43.4 % (41.0-53.0); Immature Granulocytes % (Auto) 0 % (0-0); Immature Granulocytes Auto 0.02 Thou/mm3 (0.00-0.00); Lymphocytes # (Auto) 2.2 Thou/mm3 (1.0-4.8); Lymphocytes % (Auto) 41 % (10-50); Mean Corpuscular HGB Conc 34.6 g/dl (31.0-37.0); Mean Corpuscular Hemoglobin 30.7 pg (25.0-35.0); Mean Corpuscular Volume 89 fL (80-100); Monocytes # (Auto) 0.6 Thou/mm3 (0.0-0.8); Monocytes % (Auto) 11 % (0-12); Neutrophils # (Auto) 2.4 Thou/mm3 (1.8-7.7); Neutrophils % (Auto) 44 % (37-80); Nucleated Red Blood Cell % 0 /100 WBC (0); Platelet Count 187 Thou/mm3 (140-440); RDW Standard Deviation 42.7 fL (35.1-43.9); Red Blood Count 4.89 Miln/mm3 (4.50-5.90); White Blood Count 5.5 Thou/mm3 (3.8-10.6)
[2024-04-19 03:53] LABS: Partial Thromboplastin Time 28.7 Seconds (22.0-36.0); Prothrombin Time 10.9 Seconds (9.0-12.2)
[2024-04-19 03:56] LABS: Alanine Aminotransferase 84 U/L (10-49); Albumin, Serum 4.4 gm/dL (3.5-5.0); Albumin/Globulin Ratio 1.6 (1.2-2.2); Alkaline Phosphatase 70 U/L (46-116); Anion Gap 5 (7-16); Aspartate Amino Transferase 63 U/L (0-34); BUN/Creatinine Ratio 19 Ratio (12-20); Bilirubin,Total 1.1 mg/dL (0.3-1.2); Blood Urea Nitrogen 13 mg/dL (9-23); Calcium 9.3 mg/dL (8.3-10.6); Calcium (Corrected) 9.3 mg/dL (8.5-10.1); Carbon Dioxide 27.4 mMol/L (20.0-31.0); Chloride 106 mMol/L (98-107); Creatinine (Component) 0.7 mg/dL (0.6-1.3); Estimated Creatinine Clearance 144.9 mL/min (>60); Globulin 2.7 gm/dL (2.3-3.5); Glucose 88 mg/dL (74-106); Magnesium 2.3 mg/dL (1.6-2.6); Osmolality,Calculated 274 (275-295); Phosphorous 4.1 mg/dL (2.4-5.1); Potassium 4.2 mMol/L (3.4-5.1); Sodium 138 mMol/L (136-145); Total Protein 7.1 gm/dL (5.7-8.2); eGFR > 60 See Note
[2024-04-19] MEDS: METOPROLOL TARTRATE 25 MG TABLET 50 MG PO ×2 (08:49→20:57)
[2024-04-19] MEDS: ASPIRIN EC 81 MG TABEC PO (08:49)
--- NOTE | 2024-04-19 12:03 | ESPR_ITS ---
Documentation for date of: 04/19/24 Subjective Subjective Interval history: Overnight, no acute events reported. Patient continues to be on tartrate 50 mg twice daily and aspirin. Will discontinue therapeutic Lovenox at this time. Patient seen and examined at bedside. Patient denies any chest pain or palpitations or shortness of breath. Pending echocardiogram, and further cardiology recommendations. Troponin has down trended yesterday. Exam Vital Signs Temp Pulse Resp BP Pulse Ox O2 Del Method 97.0 F 53 L 16 128/72 99 Room Air 04/19/24 08:00 04/19/24 11:51 04/19/24 08:00 04/19/24 08:49 04/19/24 08:00 04/19/24 08:00 Narrative Exam General Appearance: Pt is a [place]i-speaking young male in NAD sitting in chair. Alert and oriented, cooperative. HEENT: NC/AT, no scleral icterus, no conjunctival pallor, MMM Lungs: CTAB, no wheezes or crackles appreciated CVS: RRR, S1/S2 heard, no murmurs or rubs appreciated ABD: Soft, non-tender, non-distended, BS + in all 4 quadrants EXT: no deformity/edema/lesions/cyanosis/clubbing, radial pulses 2+ BL, DP pulses 2 + BL SKIN: Skin exam normal without any rashes. Neuro: A&O x 3. No gross neurological deficits. Motor and sensory grossly intact in B/L UL and LL. Psych: Appropriate mood and affect Objective Labs 04/20/24 05:06 04/20/24 05:06 Labs: Laboratory Results - last 24 hr 04/18/24 04/19/24 14:10 03:28 WBC 5.5 RBC 4.89 Hgb 15.0 Hct 43.4 MCV 89 MCH 30.7 MCHC 34.6 RDW Std Deviation 42.7 Plt Count 187 Neut % (Auto) 44 Lymph % (Auto) 41 [place] % (Auto) 11 Eos % (Auto) 3 Baso % (Auto) 1 Neut # (Auto) 2.4 Lymph # (Auto) 2.2 [place] # (Auto) 0.6 Eos # (Auto) 0.2 Baso # (Auto) 0.0 Immature Gran # (Auto) 0.02 H Absolute Nucleated RBC 0.00 Immature Gran % 0 Nucleated RBC % 0 PT 10.9 INR 1.0 APTT 28.7 Sodium 138 Potassium 4.2 Chloride 106 Carbon Dioxide 27.4 Anion Gap 5 L BUN 13 Creatinine 0.7 Estim Creat Clear Calc 144.9 eGFR > 60 BUN/Creatinine Ratio 19 Glucose 88 Calculated Osmolality 274 L Calcium 9.3 Corrected Calcium 9.3 Phosphorus 4.1 Magnesium 2.3 Total Bilirubin 1.1 AST 63 H ALT 84 H Alkaline Phosphatase 70 Troponin I 2.066 H* D Total Protein 7.1 Albumin 4.4 Globulin 2.7 Albumin/Globulin Ratio 1.6 Quality Measures Quality Measures none Assessment & Plan Assessment Current Active Medications: Generic Name Dose Route Start Last Admin Trade Name Freq PRN Reason Stop Dose Admin Acetaminophen 650 mg 04/19/24 11:51 Acetaminophen 325 Mg Tablet PO 05/18/24 02:07 Q6H PRN Fever >100.5 Aspirin 81 mg 04/18/24 09:00 04/19/24 08:49 Aspirin Ec 81 Mg Tabec PO 05/18/24 08:59 81 mg QDAY GISELA Administration Metoprolol Tartrate 50 mg 04/18/24 09:00 04/19/24 08:49 Metoprolol Tartrate 25 Mg Tablet PO 05/18/24 08:59 50 mg BID GISELA Administration Ondansetron HCl 4 mg 04/18/24 02:08 Ondansetron Inj 2 Mg/Ml Inj 2 Ml IV 05/18/24 02:07 Q6H PRN NAUSEA OR VOMITING Protocol Plan 23-year-old male patient with past medical history of nonspecified arrhythmia presented to the ED due to palpitation and dizziness that started at 5 PM on 17 April 2024, admitted for SVT with elevated troponins. #SVT status post conversion #NSTEMI type I versus type II On presentation patient's heart rate was 221, blood pressure was 129/79, other vitals within normal limits saturating well on room air. Patient was given 2 doses of adenosine 6 and 12 mg respectively. His SVT converted to sinus rhythm after the second dose of adenosine. He was started on metoprolol tartrate 50 mg p.o. by the ED team. Initially his troponin was 0.328 and repeat of troponin was 2.567. Repeat EKG showed high voltage QRS complex however there was no signs of ischemic changes. Patient was given aspirin 325 mg p.o. and statins by the ED team. Troponins peaked at 4.47. NSTEMI type II (demand ischemia) suspected, less likely NSTEMI type I. Troponins have since downtrended. -Telemetry -Start the patient on metoprolol tartrate 50 mg p.o. twice daily -Discharge on metoprolol succinate 50 mg p.o. daily -Replete electrolytes as needed -Avoid stimulants including coffee -Cardiology consultation to Dr. Vázquez was ordered, recommendations appreciated -Aspirin 81 mg p.o. daily -Echo pending -DC therapeutic Lovenox, and started Lovenox for DVT prophylaxis #Transaminitis Patient came with elevated liver enzymes, denied any hx of liver disease, denied alcohol abuse, U tox was negative On abdominal CT scan liver was normal -Acute hep panel pending -Monitor labs Health maintenance: DVT prophylaxis: Lovenox GI prophylaxis: Not needed Diet: Regular Lines: Peripheral IV Code status: Full code Patient's plan and care discussed with my attending, Dr. Vandana Cordon MD PGY-2 Attending Provider Attestation/Addendum Addie Duran DO, attest that I was physically present for the cerda portions of the service and evaluated the patient with the resident and I reviewed and discussed the case with the resident and agree with the resident's findings and plans of care as documented above Patient seen and evaluated this AM. No further episodes of tachycardia or chest pain. Pending echocardiogram. No acute events overnight otherwise. Anticipate DC within next 24h
[2024-04-19] MEDS: ENOXAPARIN SOD INJ 40 MG/0.4 ML SYRINGE SC (16:47)
[2024-04-19 22:07] LABS: Hepatitis A Antibody IgM Non Reactive (Non React); Hepatitis B Core Antibody IgM Non Reactive (Non React); Hepatitis B Surface Antigen Non Reactive (Non React); Hepatitis C Antibody Non Reactive (Non React)
[2024-04-19 22:21] LABS: Collection Type, Urine Clean Catch; Squamous Epithelial Cell,Urine 0 /hpf (0-5); WBC,Urine 0 /hpf (0-5)
[2024-04-19 22:27] LABS: Bilirubin,Urine Negative (Negative); Blood,Urine Negative (Negative); Clarity,Urine Clear (Clear/Hazy); Color,Urine Colorless (Lt Yel-Yel); Glucose, Urine Negative (Negative); Ketones,Urine Negative (Negative); Leukocyte Esterase,Urine Negative (Negative); Nitrite,Urine Negative (Negative); Protein,Urine Negative (Neg - Trace); RBC,Urine < 1 /hpf (0-3); Specific Gravity,Urine 1.006 (1.001-1.035); Urobilinogen,Urine Negative mg/dL (0.0-1.0)
[2024-04-20] VITALS (8 sets, daily range): BP systolic 102–128; BP diastolic 59–83; PULSE 51–65; RESP 16–97; TEMP 36–36.7; O2SAT 95–98; BMI 25.7
[2024-04-20 06:20] LABS: Basophils % (Auto) 1 % (0-2.5); Eosinophils # (Auto) 0.2 Thou/mm3 (0.0-0.5); Eosinophils % (Auto) 3 % (0-10); Hematocrit 45.1 % (41.0-53.0); Hemoglobin 15.4 g/dL (13.5-16.0); Immature Granulocytes % (Auto) 1 % (0-0); Immature Granulocytes Auto 0.03 Thou/mm3 (0.00-0.00); Lymphocytes # (Auto) 1.9 Thou/mm3 (1.0-4.8); Lymphocytes % (Auto) 35 % (10-50); Mean Corpuscular HGB Conc 34.1 g/dl (31.0-37.0); Mean Corpuscular Hemoglobin 30.7 pg (25.0-35.0); Mean Corpuscular Volume 90 fL (80-100); Monocytes # (Auto) 0.8 Thou/mm3 (0.0-0.8); Monocytes % (Auto) 14 % (0-12); Neutrophils # (Auto) 2.5 Thou/mm3 (1.8-7.7); Neutrophils % (Auto) 46 % (37-80); Nucleated Red Blood Cell % 0 /100 WBC (0); Platelet Count 231 Thou/mm3 (140-440); RDW Standard Deviation 42.5 fL (35.1-43.9); Red Blood Count 5.01 Miln/mm3 (4.50-5.90); White Blood Count 5.4 Thou/mm3 (3.8-10.6)
[2024-04-20 06:29] LABS: Alanine Aminotransferase 85 U/L (10-49); Albumin, Serum 4.5 gm/dL (3.5-5.0); Albumin/Globulin Ratio 1.6 (1.2-2.2); Alkaline Phosphatase 73 U/L (46-116); Anion Gap 8 (7-16); Aspartate Amino Transferase 52 U/L (0-34); BUN/Creatinine Ratio 17 Ratio (12-20); Bilirubin,Total 0.8 mg/dL (0.3-1.2); Blood Urea Nitrogen 12 mg/dL (9-23); Calcium 9.6 mg/dL (8.3-10.6); Calcium (Corrected) 9.6 mg/dL (8.5-10.1); Chloride 106 mMol/L (98-107); Creatinine (Component) 0.7 mg/dL (0.6-1.3); Estimated Creatinine Clearance 156.1 mL/min (>60); Globulin 2.9 gm/dL (2.3-3.5); Glucose 83 mg/dL (74-106); Magnesium 2.2 mg/dL (1.6-2.6); Osmolality,Calculated 279 (275-295); Phosphorous 3.9 mg/dL (2.4-5.1); Potassium 4.2 mMol/L (3.4-5.1); Sodium 141 mMol/L (136-145); Total Protein 7.4 gm/dL (5.7-8.2); eGFR > 60 See Note
[2024-04-20] MEDS: ENOXAPARIN SOD INJ 40 MG/0.4 ML SYRINGE SC (08:29)
[2024-04-20] MEDS: ASPIRIN EC 81 MG TABEC PO (08:30)
[2024-04-20] MEDS: METOPROLOL TARTRATE 25 MG TABLET 50 MG PO (08:30)
--- NOTE | 2024-04-20 09:30 | PD.IMPROG ---
Documentation for date of: 04/20/24 Subjective Subjective Interval history: no further SVT Exam Vital Signs Temp Pulse Resp BP Pulse Ox O2 Del Method 96.8 F 60 19 128/78 98 Room Air 04/20/24 08:00 04/20/24 08:30 04/20/24 08:00 04/20/24 08:30 04/20/24 08:00 04/20/24 08:00 Routine HEENT Exam Head: Present normocephalic and atraumatic Eye: Present EOMI and PERRL ENT: Present mucous membranes moist Routine Neck Exam Neck: Present supple and trachea midline Routine Respiratory Exam Respiratory: Present chest non-tender, lungs clear, normal breath sounds and no resp distress Routine Cardiovascular Exam Cardiovascular: Present RRR Routine Abdominal Exam Abdominal: Present soft and normoactive bowel sounds Routine Extremities Exam Extremities: Present full ROM Routine Skin Exam Skin: Present intact, dry and warm Routine Neurological Exam Neurological: Present alert, oriented X3 and CN II-XII intact Routine Psychiatric Exam Psychiatric: Present normal affect and normal thought process Objective Labs 04/20/24 05:06 04/20/24 05:06 Labs: Laboratory Results - last 24 hr 04/18/24 04/19/24 04/20/24 02:26 21:10 05:06 WBC 5.4 RBC 5.01 Hgb 15.4 Hct 45.1 MCV 90 MCH 30.7 MCHC 34.1 RDW Std Deviation 42.5 Plt Count 231 D Neut % (Auto) 46 Lymph % (Auto) 35 [place] % (Auto) 14 H Eos % (Auto) 3 Baso % (Auto) 1 Neut # (Auto) 2.5 Lymph # (Auto) 1.9 [place] # (Auto) 0.8 Eos # (Auto) 0.2 Baso # (Auto) 0.0 Immature Gran # (Auto) 0.03 H Absolute Nucleated RBC 0.00 Immature Gran % 1 H Nucleated RBC % 0 Sodium 141 Potassium 4.2 Chloride 106 Carbon Dioxide 27.0 Anion Gap 8 BUN 12 Creatinine 0.7 Estim Creat Clear Calc 156.1 eGFR > 60 BUN/Creatinine Ratio 17 Glucose 83 Calculated Osmolality 279 Calcium 9.6 Corrected Calcium 9.6 Phosphorus 3.9 Magnesium 2.2 Total Bilirubin 0.8 AST 52 H ALT 85 H Alkaline Phosphatase 73 Total Protein 7.4 Albumin 4.5 Globulin 2.9 Albumin/Globulin Ratio 1.6 Ur Collection Type Clean Catch Urine Color Colorless A Urine Clarity Clear Urine pH 6.0 Ur Specific [place] 1.006 Urine Protein Negative Urine Glucose (UA) Negative Urine Ketones Negative Urine Blood Negative Urine Nitrite Negative Urine Bilirubin Negative Urine Urobilinogen (Auto) Negative Ur Leukocyte Esterase Negative Urine RBC < 1 Urine WBC 0 Ur Squamous Epith Cells 0 Urine Bacteria None Hepatitis A IgM Ab Non Reactive Hep Bs Antigen Non Reactive Hep B Core IgM Ab Non Reactive Hepatitis C Antibody Non Reactive Assessment & Plan A&P Narrative continue metoprolol recommend echo may be d/jeffry Time Spent With Patient Time: Total time spent is greater than 50% in coordination of care (as documented) at patient's floor/unit and/or counseling patient:
--- NOTE | 2024-04-20 11:07 | PC.SS ---
Reynold Starks is a 23 year-old male admitted to OR for Palpitations. SS conducted bedside contact with the patient to complete initial assessment and to discuss discharge planning.? Patient confirmed demographic information. Patient identifies his brother Shakeel Maurice [phone] as his surrogate decision maker. Patient resides at home with his family. Pt states he is able to complete all ADL?s independently, no need for any source of DME. No PCP. Pharmacy of choice is [facility]. DC option discussed and pt wishes to return home. Pts family will provide transportation upon DC. No further intervention required at this time, manager social services would be available to address any further concerns. DC Plan: Home Contact: BrotherShakeel
--- NOTE | 2024-04-20 11:26 | PC.SS ---
Rounding: pending ECHo poss DC late today if ECHO is read
--- NOTE | 2024-04-20 11:59 | ECHO_ITS ---
Transthoracic Echo Report Ht (in): 68 Wt (lb): 171 Exam Location: Echo Lab Status: Inpatient Clinical Academic Allergist: IVANNA Hodge^^^^ Indications: Procedure Performed: BP: 120 / 72 HR: 55 Technical Quality: Good MEASUREMENTS (Male / Female) Normal Values 2D ECHO LV Diastolic Diameter PLAX 5.3 cm 4.2 - 5.9 / 3.9 - 5.3 cm LV Systolic Diameter PLAX 3.6 cm IVS Diastolic Thickness 0.7 cm 0.6 - 1.0 / 0.6 - 0.9 cm LVPW Diastolic Thickness 0.8 cm 0.6 - 1.0 / 0.6 - 0.9 cm LV Relative Wall Thickness 0.3 LVOT Diameter 1.9 cm Aortic Root Diameter 2.9 cm LA Systolic Diameter LX 3.2 cm 3.0 - 4.0 / 2.7 - 3.8 cm LV Ejection Fraction MOD BP 60.6 % >= 55 % LV Cardiac Index MOD BP 3467.6 cm?/min?m? LV Ejection Fraction MOD 4C 68.3 % LV Cardiac Index MOD 4C 4201.3 cm?/min?m? LV Ejection Fraction 4C AL 69.3 % LV Cardiac Index 4C AL 4446.9 cm?/min?m? LV Ejection Fraction MOD 2C 52.5 % LV Cardiac Index MOD 2C 2544.0 cm?/min?m? LV Ejection Fraction 2C AL 54.5 % LV Cardiac Index 2C AL 2662.4 cm?/min?m? LA Volume Index 27.9 cm?/m? 16 - 28 cm?/m? Ascending Aorta Diameter 2.2 cm DOPPLER AV Peak Velocity 130.5 cm/s AV Peak Gradient 6.8 mmHg AV Mean Gradient 4.0 mmHg AV Velocity Time Integral 31.8 cm LVOT Peak Velocity 115.0 cm/s LVOT Peak Gradient 5.3 mmHg LVOT Velocity Time Integral 29.1 cm LVOT Cardiac Index 2337.4 cm?/min?m? AV Area Cont Eq vti 2.6 cm? AV Area Cont Eq pk 2.5 cm? MV Area PHT 3.1 cm? Mitral E Point Velocity 93.5 cm/s Mitral A Point Velocity 49.7 cm/s Mitral E to A Ratio 1.9 LV E' Lateral Velocity 16.2 cm/s Mitral E to LV E' Lateral Ratio 5.8 LV E' Septal Velocity 10.2 cm/s Mitral E to LV E' Septal Ratio 9.2 TR Peak Velocity 180.5 cm/s TR Peak Gradient 13.0 mmHg PV Peak Velocity 116.0 cm/s PV Peak Gradient 5.4 mmHg RVOT Peak Velocity 65.8 cm/s FINDINGS Left Ventricle Normal left ventricular size, wall thickness, systolic function with no obvious regional wall motion abnormalities. Normal left ventricular diastolic filling pattern for age. The ejection fraction is visually estimated at 60-65 %. Right Ventricle The right ventricle is normal in size and systolic function. The estimated right ventricular systolic pressure, 14 mmHg. Left Atrium The left atrium is normal by two-dimensional, color flow and Doppler imaging with no structural abnormalities, no thrombus formation present. Right Atrium The right atrium is normal by two-dimensional imaging, color flow and Doppler imaging with no structural abnormalities, no thrombus formation present. Atrial Septum The interatrial septum appears normal with no evidence of a shunt. Aorta The aorta is normal by two-dimensional, color flow and Doppler interrogation. Mitral Valve Trace to mild mitral regurgitation. Mitral valve prolapse. Aortic Valve Mild thickening of the aortic valve leaflets. Tricuspid Valve There is trace tricuspid valve regurgitation. Pulmonic Valve Trivial pulmonic valve regurgitation. Vessels The pulmonary artery appears normal. The inferior vena cava pulmonary and hepatic veins appear normal. Pericardium The pericardium is normal by two-dimensional imaging. There is no significant pericardial effusion. CONCLUSIONS indication: SVT LV appears normal with EF 60-65%. RV appears normal with RVSP 14 mmHg. MV has trace-mild MR & mild Prolapse. AOV has mildly thickend leaflets. Jaz Vázquez (Electronically Signed) Final Date: 21 April 2024 13:13
--- NOTE | 2024-04-20 16:11 | ESDS_ITS ---
<Statement entered by Addie Ross DO - 04/20/24 18:10> I, Addie Ross DO, attest that I was physically present for the cerda portions of the service and evaluated the patient with the resident and I reviewed and discussed the case with the resident and agree with the resident's findings and plans of care as documented above <Statement entered by Angle Cordon MD - 04/20/24 18:07> I discussed with and supervised the intern brand physician who took care of this patient. I personally saw and examined the patient and discussed the assessment and plan with the entire medicine team, including my attending Dr. Ross, I agree with most of the assessment and plan as documented below Angle Cordon M.D. PGY-2 Disclaimer: Despite multiple revisions, due to the dictation software being used, the document bellow may not be free of grammatical errors including phonetic/typographic errors. However, this does not deter from our commitment to providing health care in the patient's best interest in mind. Planned Discharge Date 04/20/24 DS: Providers Provider Date of admission: 04/19/24 10:41 Primary care physician: Physician Darlene Primary/Family Admitting Provider: Ghazala Weeks MD Attending Provider on Admission: Addie Ross DO Consults: 04/18/24 00:14 Consult to Cardiology Stat Comment: SVT with elevated Trops Consulting Provider: Wendy Vázquez Attending Provider on DC: Addie Ross DO Discharging Provider: Tyler Myers MD DS: Diagnosis Problem List Completed Was Problem List Reviewed/Reconciled?: Yes Hospital Course Hospital Course Hospital course: 23-year-old male patient with past medical history of nonspecified arrhythmia presented to the ED due to palpitation and dizziness that started at 5 PM on 17 April 2024. 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 At that time patient felt a little bit dizzy and mild sweaty however he denied any chest pain. He reported that he had an episode similar in November of last year. He has not followed up with any order entry technician since then, has been taking metoprolol succinate 25 mg since then. EKG in the ED showed SVT with heart rate of 221, resolved with 2 rounds of adenosine. EKG confirmed resolution of SVT. Patient was treated with Toprol tartrate 50 mg p.o. twice daily. Patient had echocardiogram inpatient, can be read outpatient. Patient cleared for discharge by cardiology. Stable and cleared for discharge. Discharge plan: You have been started on the following medications: -Metoprolol tartrate 50 mg twice daily Your previous meds have been discontinued. Please follow-up with cardiology outpatient. Please follow-up at the [facility] [phone] Clement 04/21/2024 at 2:30 PM. Return to the ED if you have new or worsening symptoms. Via Google translate: Se le mercer iniciado los siguientes medicamentos: -Tartrato de metoprolol 50 mg dos veces al d?a Se le mercer interrumpido los medicamentos anteriores. Realice un seguimiento con el departamento ambulatorio de cardiolog?a. Realice un seguimiento en el [facility] [phone] Clement el 12/14/2024 a las 2:30 p. m. Regrese al departamento de emergencias si tiene s?ntomas nuevos o que empeoran. Diagnosis: #SVT status post conversion #NSTEMI type I versus type II #Transaminitis Plan of care discussed with senior resident Dr. Cordon PGY?[address] Ross. Tyler Myers MD PGY?1 Time Spent with Patient Time attestation: Total time spent providing and/or coordinating discharge services: Exam Vital Signs Temp Pulse Resp BP Pulse Ox O2 Del Method 97.2 F 54 L 20 106/83 96 Room Air 04/20/24 12:00 04/20/24 12:00 04/20/24 12:00 04/20/24 12:00 04/20/24 12:00 04/20/24 12:00 Narrative Exam General Appearance: Pt is a Kuwaiti-speaking young male in NAD sitting in chair. Alert and oriented, cooperative. HEENT: NC/AT, no scleral icterus, no conjunctival pallor, MMM Lungs: CTAB, no wheezes or crackles appreciated CVS: RRR, S1/S2 heard, no murmurs or rubs appreciated ABD: Soft, non-tender, non-distended, BS + in all 4 quadrants EXT: no deformity/edema/lesions/cyanosis/clubbing, radial pulses 2+ BL, DP pulses 2 + BL SKIN: Skin exam normal without any rashes. Neuro: A&O x 3. No gross neurological deficits. Motor and sensory grossly intact in B/L UL and LL. Psych: Appropriate mood and affect Discharge Plan Plan Patient Disposition: HOME (Self Care) Patient condition on transfer: Stable Care Plan Goals: You have been started on the following medications: -Metoprolol tartrate 50 mg twice daily Your previous meds have been discontinued. Please follow-up with cardiology outpatient. Please follow-up at the [facility] [phone] Clement 04/21/2024 at 2:30 PM. Return to the ED if you have new or worsening symptoms. Via Google translate: Se le mercer iniciado los siguientes medicamentos: -Tartrato de metoprolol 50 mg dos veces al d?a Se le mercer interrumpido los medicamentos anteriores. Realice un seguimiento con el departamento ambulatorio de cardiolog?a. Realice un seguimiento en el [facility] [phone] Clement el 12/14/2024 a las 2:30 p. m. Regrese al departamento de emergencias si tiene s?ntomas nuevos o que empeoran. Prescriptions/Referrals Prescriptions/Med Rec: New metoprolol tartrate 50 mg tablet 50 mg PO BID 30 Days Qty: 60 3RF Referrals: No Primary/Family,Physician [Primary Care Provider] - Patient/Caregiver Discharge Instructions Discharge Activity: resume usual activities Education Materials: Supraventricular Tachycardia, Your Heart's Electrical System, Understanding Supraventricular ..., Understanding Tachycardia Print Language: Kuwaiti Stand Alone Forms: Ngozi Award Info., Patient Portal Info Letter Discharge Order Discharge Orders: Discharge (Routine); Ordered 04/20/24 Ordered By: Tyler Myers Quality Discharge Quality Measures VTE prophylaxis
== END 2024-04-20 18:28 | disposition home or self-care (01) | DRG 201 ==
LOC: SERX 04-18 00:29 → SERHOLD 04-18 03:02 → S3SX 04-20 05:43
PROVIDERS: Emergency Medicine; Student in an Organized Health Care Education/Training Program; Admitting Provider Internal Medicine; Emergency Provider Student in an Organized Health Care Education/Training Program; Visit Provider Internal Medicine
DX: I47.10 Supraventricular tachycardia, unspecified (principal); R74.01 Elevation of levels of liver transaminase levels; R79.89 Other specified abnormal findings of blood chemistry; Z79.899 Other long term (current) drug therapy
CPT/HCPCS: 36415; 71045; 76700; 80053; 80074; 80307; 80320; 81001; 83540; 83550; 83735; 83880; 84100; 84439; 84443; 84484; 85025; 85379; 85610; 85730; 87400; 87811; 93005; 93225; 93306; 96365; 96366; 96372; 96375; 99285; G0378; J0153; J1643; J1650; J3475; J7040; A9270; G0480

== ENCOUNTER 2024-04-21 15:06 | Outpatient (AMB) | payer MEDICAID, SELFPAY ==
[2024-04-21 15:13] VITALS: BP 127/70; PULSE 61; RESP 16; TEMP 36.9; O2SAT 98
--- NOTE | 2024-04-21 15:13 | ACNOTE_ITS ---
Vital Signs 04/21/24 15:13 Weight 77.734 kg Weight Measurement Method Standing Scale BP 127/70 Blood Pressure Source Automatic Cuff Blood Pressure Location Left Upper Arm Position Sitting Respiration 16 Pulse 61 Pulse Source Monitor Temp 98.4 F Temp Source Temporal Artery Scan Pulse Oximetry (%) 98 Oxygen Delivery Method Room Air Allergies/Meds Allergies & Medications Allergies No Known Allergies Allergy (Verified 04/22/24 11:12) Medication Reconciliation metoprolol tartrate 50 mg tablet 50 mg PO BID 1 month #60 tabs 04/20/24 [Rx Confirmed 04/22/24] MA Intake Visit Data Collection New Patient or Established: Established Patient (seen at [facility] within 3 years) Seen by Clinical Staff ONLY (RN/MA): No Pain Present Currently: No Pain scale:: 0 Pain Scale Used: Chapman-Gonzales/Numerical Clinical Research Scientist Required: No PCP or OBGYN visit in last 3 months: No Hx Now: No Do You Feel Safe at Home: Yes Authorities Contacted: N/A Smoking Status Smoking Status: Never smoker Immunization / Flu Flu Vaccine in the Last 12 Months: No Flu Vaccine Exclusion Criteria: No Exclusion Criteria Past Medical History Past Medical History CARDIAC: Negative Congestive Heart Failure RESPIRATORY: Negative Chronic Obstructive Pulmonary Disease (COPD) GENITOURINARY: Negative Renal Disease ENDOCRINE: Negative Diabetes Mellitus Type 1 or Diabetes Mellitus Type 2 Social History SMOKING STATUS: Smoking status: Never smoker ALCOHOL: Alcohol Intake: Former ALCOHOL FREQUENCY: Alcohol Intake Frequency: 0-2 Drinks per Day HOUSING: Housing: House LIVES WITH: Lives With: Family Patient Portal [employer] Social History Living Situation History Housing: House Tobacco History Smoking Status: Never smoker Alcohol History Alcohol Intake: Former Alcohol Intake Frequency: 0-2 Drinks per Day Domestic Abuse History Do You Feel Safe at Home: Yes Review of Systems Report any current symptoms Only answer those that you have currently: Past Medical History Past Medical History Have you ever been diagnosed with any of the following: Cardiology Problems Congestive Heart Failure: No Respiratory Problems Chronic Obstructive Pulmonary Disease (COPD): No Genital/Urinary Problems Renal Disease: No Endocrine Problems Diabetes Mellitus Type 1: No Diabetes Mellitus Type 2: No History of Present Illness HPI Narrative 23-year-old male with past medical history of prior unknown arrhythmia presented [facility] today to follow-up from recent hospital visit. Patient was seen in the hospital due to an episode of SVT and was discharged on 04/20/2024. Patient stated that he was working in the [place] when he started feeling palpitations and his heart racing. He also stated that during this time he had blurry vision and feelings of chest pressure, shortness of breath, and lightheadedness. In the ED patient was found to have SVT on initial EKG, he was given adenosine with conversion back to sinus rhythm. At this time cardiology was also consulted. Patient stated that he had a similar episode around November 2023 back in [place] where he was working in the [place] and he had similar symptoms and went to the hospital. He stated that this time he was told he had an arrhythmia and was given a medication, but does not remember the name at this time. He stated he did not follow-up with a pipelaying fitter since that first episode and that they did not tell him quite well what he had at this time. Patient states that he drinks around 2 or 3 cans of Coca-Cola every day and that he usually drinks around 24 or more cans of beer on the weekend sometimes every other week and sometimes 2 weekends in a row.he denies any smoking or illicit drug use. He stated that his cousin that had a similar episode as well in the past, but he does not know what was he was told. He denies any cardiac history in his mother or father. He was discharged on metoprolol titrate 50 mg BID and since then he states that he has not had any palpitations or feelings of heart racing or any other complaints. Review of Systems Review of Systems Narrative Review of Systems: Constitutional: Denies sweats, Denies weight loss/gain, Denies fever, Denies chills. HEENT: Denies hearing loss, Denies ear pain, Denies postnasal drip, Denies double vision, Denies blurry vision. Respiratory: Denies shortness of breath, Denies cough, Denies wheezing. Cardiovascular: Denies chest pain, Denies palpitations, Denies sudden loss of consciousness. GI: Denies blood in stool, Denies constipation, Denies abdominal pain, Denies difficulty swallowing, Denies nausea or vomit. : Denies urinary incontinence, Denies pain while urinating, Denies increased urinary frequency. MSK: Denies joint pain, Denies joint swelling, Denies numbness. Skin: Denies rash, Denies itching, Denies easy bruising. Neuro: Denies headaches, Denies dizziness, Denies seizures. Objective/Exam General General Appearance: alert, in no apparent distress, cooperative and well groomed Head Head exam: atraumatic and normocephalic Eye Eye exam: Present normal appearance, PERRL and EOMI ENT ENT exam: Present normal exam, normal oropharynx and mucous membranes moist Neck Neck exam: Present normal inspection and full ROM Resp Respiratory exam: Present normal lung sounds bilaterally Card Cardiovascular exam: Present regular rate, normal rhythm and normal heart sounds Abdominal Abdominal exam: Present soft and normal bowel sounds Extremities Extremities exam: Present normal inspection and full ROM Neuro Neurological exam: Present alert, oriented X3 and CN II-XII intact Psych Psychiatric exam: Present normal affect and normal mood Skin Skin exam: Present warm and normal color Assessment & Plan Diagnosis / Problem List (1) Supraventricular tachycardia: Status: Acute Assessment & Plan: Patient was recently admitted to the hospital due to an episode of SVT which converted to sinus rhythm after adenosine. Echo on 04/20/2024 showed EF 60-65% and some thickening of AV. Plan: Continue metoprolol titrate 50 mg twice daily Educated the patient on Valsalva maneuvers Will refer to cardiology Counseled the patient on abstaining from alcohol use Counseled the patient on decreasing his caffeine intake (2) Transaminitis: Status: Acute Assessment & Plan: Patient has some mildly elevated transaminitis, this is most likely due to daily alcohol intake Abdominal ultrasound also showed fatty liver which could be due to alcohol as well Hepatitis panel was negative Plan: Consult the patient was seen from alcohol use Will repeat liver function test in 6 weeks Orders: Referrals Cardiology I47.10 - Supraventricular tachycardia, unspecified Office Procedures [facility] Level of Care Nursing/Assessment Patient Status: Established Patient Nursing Assessment/Reassessment: Medication Reconciliation, Update PMH in EMR and Vital Signs Coordination of Care: Complex Care and Chronic Disease 1-5, Consent,records obtained, informed consent, Education Simp Pt/Fam, Lab and Imaging orders, Ref for ancillary service and Staff clarify orders Established Patient Charge Established Patient Point Assignment: 120 Established Patient Point Charge: Level 4 (120-155)
== END 2024-04-21 16:06 | disposition home or self-care (01) ==
LOC: HODAHC 15:06
PROVIDERS: Supervising Provider Internal Medicine
DX: I47.10 Supraventricular tachycardia, unspecified (principal); R74.01 Elevation of levels of liver transaminase levels
CPT/HCPCS: 99214; G0463

== ENCOUNTER 2024-04-28 09:41 | Outpatient (AMB) | payer MEDICAID, SELFPAY ==
--- NOTE | 2024-04-28 11:57 | ACNOTE_ITS ---
Vital Signs 04/28/24 12:05 Weight 77.734 kg Weight Measurement Method Standing Scale BP 128/79 Blood Pressure Source Automatic Cuff Blood Pressure Location Left Upper Arm Position Sitting Respiration 16 Pulse 83 Pulse Source Monitor Temp 98.3 F Temp Source Temporal Artery Scan Pulse Oximetry (%) 98 Oxygen Delivery Method Room Air Allergies/Meds Allergies & Medications Allergies No Known Allergies Allergy (Verified 04/28/24 16:11) Medication Reconciliation metoprolol tartrate 50 mg tablet 50 mg PO BID 1 month #60 tabs 04/20/24 [Rx Confirmed 04/28/24] MA Intake Visit Data Collection New Patient or Established: Established Patient (seen at [facility] within 3 years) Seen by Clinical Staff ONLY (RN/MA): No Pain Present Currently: No Pain scale:: 0 Pain Scale Used: Chapman-Gonzales/Numerical Special Needs Teacher Required: No PCP or OBGYN visit in last 3 months: Yes Hx Now: No Do You Feel Safe at Home: Yes Authorities Contacted: N/A Smoking Status Smoking Status: Never smoker Immunization / Flu Flu Vaccine in the Last 12 Months: No Flu Vaccine Exclusion Criteria: No Exclusion Criteria Past Medical History Past Medical History CARDIAC: Negative Congestive Heart Failure RESPIRATORY: Negative Chronic Obstructive Pulmonary Disease (COPD) GENITOURINARY: Negative Renal Disease ENDOCRINE: Negative Diabetes Mellitus Type 1 or Diabetes Mellitus Type 2 Social History SMOKING STATUS: Smoking status: Never smoker ALCOHOL: Alcohol Intake: Former ALCOHOL FREQUENCY: Alcohol Intake Frequency: 0-2 Drinks per Day HOUSING: Housing: House LIVES WITH: Lives With: Family Patient Portal [employer] Social History Living Situation History Housing: House Tobacco History Smoking Status: Never smoker Alcohol History Alcohol Intake: Former Alcohol Intake Frequency: 0-2 Drinks per Day Domestic Abuse History Do You Feel Safe at Home: Yes Review of Systems Report any current symptoms Only answer those that you have currently: Heart & Circulation irregular heart rhythm: Yes (hx of SVT) fast heart rate: Yes Past Medical History Past Medical History Have you ever been diagnosed with any of the following: Cardiology Problems Congestive Heart Failure: No Respiratory Problems Chronic Obstructive Pulmonary Disease (COPD): No Genital/Urinary Problems Renal Disease: No Endocrine Problems Diabetes Mellitus Type 1: No Diabetes Mellitus Type 2: No History of Present Illness HPI Narrative 23-year-old male with past medical history of supraventricular tachycardia is presenting to the [facility] for follow-up on echocardiogram results which were obtained in the hospital. Patient was seen on 04/21/2024 at the [facility] as a hospital discharge follow-up for the supraventr icular tachycardia. During that visit, patient was referred to cardiology outpatient which he will follow-up with them next week or so. Patient continues to have symptoms with the latest one being on 04/25. Patient states that around 7 PM on Saturday night patient started to experience fast heart rates with some chest tightness. Patient took an additional dose of metoprolol tartrate 50 mg which she was prescribed but symptoms persisted until 2 AM. Patient states that he does not drink any caffeine, energy drinks or alcohol; however, he does sporadically drink soda. Patient was counseled on stopping all caffeinated drinks at this time as they could be a trigger for his supraventricular tachycardia. Patient also educated on Valsalva maneuver's and he shows clear understanding of how to do them. Patient also counseled on the importance of following up with cardiology regarding his echo results which showed normal left ventricular function but there is presence of mitral valve prolapse, trace mitral regurgitation and mildly thickened aortic valve leaflets, Review of Systems Cardiovascular Cardiovascular: Reports irregular heart rhythm (hx of SVT) and Reports rapid heart rate Objective/Exam Narrative Physical exam: Physical Exam: GENERAL: Awake, answers questions appropriately in Burkinan, appears stated age HEENT: NC/AT. Moist mucosa. PERRLA/EOMI. CARDIO: Heart RRR, no obvious murmurs, no JVD. PULM: No coughing or visible SOB. Lungs CTA B/L. GI: Abdomen soft, NT/ND, +BS. SKIN/MSK/EXT: No wounds/discoloration/rashes/edema/amputations noted. +Pedal pulses present B/L. NEURO: Oriented x3, no focal neurological deficits, Moves extremities x4. Assessment & Plan Diagnosis / Problem List (1) Supraventricular tachycardia: Status: Acute Assessment & Plan: Patient was recently admitted to the hospital due to an episode of SVT which converted to sinus rhythm after adenosine. Echo on 04/20/2024 showed LV appears normal with EF 60-65%. RV appears normal with RVSP 14 mmHg. MV has trace-mild MR & mild Prolapse. AOV has mildly thickend leaflets. Plan: Continue metoprolol titrate 50 mg twice daily Educated the patient on Valsalva maneuvers Follow-up with cardiology Counseled the patient on stopping all caffeinated beverages (2) Transaminitis: Status: Acute Assessment & Plan: Patient has some mildly elevated transaminitis, possibly secondary to primary hepatocellular disease Abdominal ultrasound also showed fatty liver which could be due to alcohol as well Hepatitis panel was negative Patient denies any alcohol use Plan: Repeat liver function enzyme tests, lipid panel and autoimmune hepatitis panel sent out follow-up in 2 weeks Orders: Orders Lipid Panel 04/28/24 R74.01 - Elevation of levels of liver transaminase levels Liver Panel 04/28/24 R74.01 - Elevation of levels of liver transaminase levels ANNETTE IFA Screen w/refl, IFA* 04/28/24 R74.01 - Elevation of levels of liver delgado saminase levels Sm Antibody* 04/28/24 R74.01 - Elevation of levels of liver transaminase levels Sm and Sm/INSULATION BOARD COATER OPERATOR Antibodies* 04/28/24 R74.01 - Elevation of levels of liver transaminase levels Additional Assessment Internal Medicine Attending Note: Case discussed with and agree with note and management plan of Resident Physician as per Resident's Note above. Issues of concern for present visit are as follows: 1 week follow-up visit. Since last visit, patient reports symptoms including palpitations, the last episode being 3 days prior. Patient took an additional dose of metoprolol tartrate at that time, symptoms resolved after a few hours. Has cardiology follow-up scheduled. Counseled regarding need to abstain from any type of stimulant including caffeine. Educated on Valsalva maneuvers. Echo results reviewed which showed normal left ventricular function, mitral valve prolapse, trace mitral regurgitation, and mildly thickened aortic valve leaflets. Patient counseled again to follow-up with cardiology. Repeat lab work ordered today. Chivo Cleveland MD Physician Billing Established Patient Established Patient: E/M Level 3-CPT 09040 Office Procedures [facility] Level of Care Nursing/Assessment Patient Status: Established Patient Nursing Assessment/Reassessment: Medication Reconciliation, Update PMH in EMR and Vital Signs Coordination of Care: Complex Care and Chronic Disease 1-5, Consent,records obtained, informed consent, Education Simp Pt/Fam, Lab and Imaging orders and Staff clarify orders Established Patient Charge Established Patient Point Assignment: 100 Established Patient Point Charge: Level 3 (80-115)
[2024-04-28 12:05] VITALS: BP 128/79; PULSE 83; RESP 16; TEMP 36.8; O2SAT 98
== END 2024-04-28 10:53 | disposition home or self-care (01) ==
LOC: HODAHC 09:41
PROVIDERS: Supervising Provider Internal Medicine
DX: Z71.2 Person consulting for explanation of examination or test findings (principal); I47.10 Supraventricular tachycardia, unspecified; R74.01 Elevation of levels of liver transaminase levels
CPT/HCPCS: 99213; G0463